=== PATIENT | male | born 1955 | race Caucasian/White ===

== ENCOUNTER → 2016-11-25 | Outpatient (CLI) | payer OTHER ==
[2016-11-25 11:53] LABS: BASO % 0.5 % (0.0-1.0); EOS # 0.3 10*3/uL (0.0-0.4); HEMATOCRIT 46.1 % (42.0-52.0); HEMOGLOBIN 15.5 g/dl (14.0-18.0); IG # 0.1 10*3/uL (0.0-0.1); LYMPH # 1.5 10*3/uL (1.3-4.4); LYMPH % 18.8 % (27.0-41.0); MEAN CELL VOLUME 86.8 fl (80.0-94.0); MEAN CORPUSCULAR HGB 29.2 pg (27.0-31.0); MEAN CORPUSCULAR HGB CONC 33.6 g/dl (33.0-37.0); MEAN PLATELET VOLUME 10.1 fl (9.6-12.3); MONO # 0.5 10*3/uL (0.1-1.0); MONO % 5.7 % (3.0-9.0); NEUT # 5.8 10*3/uL (2.3-7.9); NEUT % 70.3 % (47.0-73.0); PLATELET COUNT AUTOMATED 208 10*3/uL (130-400); RED BLOOD COUNT 5.31 10*6/uL (4.50-5.90); RED CELL DISTRI WIDTH 12.6 % (0-14.5); WHITE BLOOD COUNT 8.2 10*3/uL (4.8-10.8)
[2016-11-25 12:11] LABS: HEMOGLOBIN A1c 6.3 % (4.8-5.6)
[2016-11-25 12:25] LABS: ALBUMIN 4.3 gm/dl (3.1-4.5); ALKALINE PHOSPHATASE 66 U/L (45-117); BILIRUBIN, TOTAL 0.7 mg/dl (0.2-1.0); BUN 11 mg/dl (7-24); CARBON DIOXIDE 24 mmol/L (21-32); CHLORIDE 107 mmol/L (98-107); CHOLESTEROL 128 mg/dL (<200); EST GLOM FILT AFRICAN AMERICAN > 60 ml/min; FREE T4 1.24 ng/dl (0.76-1.46); GLUCOSE 107 mg/dL (65-99); HDL CHOLESTEROL 45 mg/dl (40-60); LDL CHOLESTEROL 58 mg/dL (9-159); POTASSIUM 3.8 mmol/L (3.5-5.1); SGOT/AST 43 IU/L (3-35); SGPT/ALT 67 U/L (12-78); SODIUM 137 mmol/L (136-145); T3 UPTAKE 34 % (31-39); TOTAL PROTEIN 8.2 gm/dL (6.4-8.2); TRIGLYCERIDES 127 mg/dl (<150); VLDL CHOLESTEROL 25 mg/dL (6-40)
[2016-11-25 12:30] LABS: BILIRUBIN, DIRECT 0.1 mg/dL (0.0-0.2); VITAMIN D, 25-HYDROXY 20.1 ng/mL (30-100)
== END | disposition home or self-care (01) ==
LOC: LAB 10:22
PROVIDERS: Internal Medicine
DX: E11.9 Type 2 diabetes mellitus without complications (principal); E55.9 Vitamin D deficiency, unspecified; R53.83 Other fatigue; Z79.899 Other long term (current) drug therapy; R52 Pain, unspecified

== ENCOUNTER → 2017-07-06 | Outpatient (CLI) | payer OTHER ==
--- NOTE | ~2017-07-06 | HM ---
[place], [place] HOLTER MONITOR REPORT NAME: PIERRE MOLINA UNIT #: [id number] ROOM: DOCTOR: JONATHAN CODY MD BIRTHDATE: [birth year] DOS: A 24-HOUR HOLTER MONITOR The study was recorded from July 06 to . The tape was analyzed and this is being dictated on June. REFERRED BY: AMBER Starkey for hypertension. PROCEDURE: The patient was monitored utilizing a Holter device for 24 hours. FINDINGS: Basic rhythm is normal sinus. Average heart rate is 75 with heart rate in sinus rhythm, varying from 52 to 128 beats per minute. The patient had occasional premature ventricular contractions. No ventricular tachycardia was seen. The patient had occasional premature atrial contractions with one atrial couplet but no SVT. No prolonged pauses were seen. The longest R-R interval was 1.3 seconds. No diary was returned. IMPRESSION: Essentially normal 24-hour Holter monitor. JONATHAN CODY MD CM:HOLTER:HOLTER MONITOR REPORT [id number] JONATHAN CODY MD
== END | disposition home or self-care (01) ==
LOC: US 06-16 11:00 → CARD 06-16 11:30 → US 06-22 10:00 → CARD 06-22 10:00 → US 10:00
DX: I65.23 Occlusion and stenosis of bilateral carotid arteries (principal)

== ENCOUNTER → 2017-08-25 | Day surgery (SDC) | payer OTHER ==
[~2017-08-25] VITALS: Ht 177.8 cm; Wt 140.6 kg
[~2017-08-25] MED LIST: 'CLONIDINE0.1 MG PO; ALLOPURINOL300 MG PO; CLONAZEPAM0.5 M2 PO; GLIPIZIDE5 MG PO; LAMOTRIGINE200 MG PO; LITHIUM CARBON300 MG PO; LOSARTAN POTASS50 M1 PO; MELOXICAM15 MG PO; OMEPRAZOLE40 MG PO; OXYBUTYNIN CHLOR5 MG PO; PRAVASTATIN SOD80 MG PO; PROAIR HFA8.5 GM INH; RISPERIDONE1 MG PO; SERTRALINE HYD100 MG PO; ZOLPIDEM TART10 MG PO
--- NOTE | ~2017-08-25 | PROC NOTE ---
[place], [place] PROCEDURE NOTE NAME: PIERRE MOLINA UNIT #: [id number] ROOM: DOCTOR: DELTA NEAL MD BIRTHDATE: [birth year] DOS: 08/25/2017 PREOPERATIVE DIAGNOSIS: History of gastroesophageal reflux disease. POSTOPERATIVE DIAGNOSES: History of gastroesophageal reflux disease. PROCEDURE: Esophagogastroduodenoscopy with antral biopsies times 2. ENDOSCOPIST: Delta Neal MD DIAGNOSTICS SALES DEVELOPER: None. ANESTHESIA: MAC. INDICATIONS: This is a 61-year-old gentleman with a history of previous diagnosis of GERD who is here for a repeat endoscopy. The procedure and its complications explained to the patient in detail preoperatively. Complications that were discussed included but were not limited to stomach perforation, missed lesions and prolonged pain. He agreed to proceed. DESCRIPTION OF PROCEDURE: After identifying the patient, the patient was brought to the endoscopy suite and placed in left lateral position. After time-out procedure was called, IV sedation was administered and a bite block was placed. An adult gastroscope was now introduced into the mouth and advanced sequentially into the pharynx, esophagus, duodenum, stomach and first 2 parts of the duodenum. There was found to be mild gastritis mainly in the antral region and also duodenitis. Two biopsies were taken from the region of the antrum and sent for histopathological diagnosis. The rest of the stomach was visualized by retroflexion of the scope and there was no evidence of bleeding or ulceration or any kind of inflammation that could be visualized in the rest of the stomach. The scope was withdrawn. The esophagus was within normal limits. There was found to be a small hiatal hernia. Upon withdrawal of the scope, the patient was then taken to the recovery room in a stable fashion. There were no complications. Dr. Delta Neal, the attending endoscopist, was present throughout the operating case. Delta Neal MD CM:PROCNOTE:PROCEDURE NOTE [id number] DELTA NEAL MD
[2017-08-25 07:30] VITALS: BP 124/71
[2017-08-25 08:12] VITALS: BP 114/73
[2017-08-25 08:27] VITALS: BP 120/70
[2017-08-25 08:42] VITALS: BP 124/70
== END | disposition home or self-care (01) ==
LOC: SDC 08-23 10:15
DX: K29.50 Unspecified chronic gastritis without bleeding (principal); K31.9 Disease of stomach and duodenum, unspecified; K29.80 Duodenitis without bleeding; K44.9 Diaphragmatic hernia without obstruction or gangrene; I10 Essential (primary) hypertension; E11.9 Type 2 diabetes mellitus without complications; J44.9 Chronic obstructive pulmonary disease, unspecified; F31.9 Bipolar disorder, unspecified; Z79.899 Other long term (current) drug therapy; Z79.82 Long term (current) use of aspirin; Z98.890 Other specified postprocedural states

== ENCOUNTER 2017-12-22 08:48 | Inpatient (IN) | payer OTHER, MEDICARE ==
[2017-12-22] VITALS (7 sets, daily range): BP systolic 113–138; BP diastolic 56–84
[~2017-12-22] VITALS: Ht 177.8 cm; Wt 129.9 kg
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
--- NOTE | ~2017-12-22 | EKG ---
[place], [place] ELECTROCARDIOGRAM REPORT NAME: PIERRE MOLINA UNIT #: [id number] ROOM: [facility] DOCTOR: PIPPA DRAFT REPORT BIRTHDATE: [birth year] [facility] Test Date: 2017-12-22 Test Time: 09:16:34 Pat Name: PIERRE MOLINA Department: Room: [facility] Gender: M Diesel Service Technician: : 1955 Requested By: JOSE TERAN Order Number: [id number] Reading MD: Mellisa Mari MD Measurements Intervals [place] Rate: 75 P: 9 MN: 164 QRS: -30 QRSD: 106 T: 33 QT: 391 QTc: 437 Interpretive Statements Sinus rhythm Left axis deviation Low voltage, precordial leads Abnormal R-wave progression, late transition Electronically Signed On 12-23-2017 4:27:23 PDT by Mellisa Mari MD CM:EKGRPT:ELECTROCARDIOGRAM REPORT 0427 JOSE FARIA DRAFT REPORT JOSE TERAN DO
[~2017-12-22 08:48] MED LIST changes: +ASPIRIN81 M1 PO; +VITAMIN D5000 UNIT PO
[2017-12-22 09:28] LABS: BASO % 0.5 % (0.0-1.0); EOS % 0.7 % (1.0-4.0); HEMATOCRIT 44.3 % (42.0-52.0); HEMOGLOBIN 15.2 g/dl (14.0-18.0); LYMPH # 0.4 10*3/uL (1.3-4.4); LYMPH % 9.5 % (27.0-41.0); MEAN CELL VOLUME 83.6 fl (80.0-94.0); MEAN CORPUSCULAR HGB 28.7 pg (27.0-31.0); MEAN CORPUSCULAR HGB CONC 34.3 g/dl (33.0-37.0); MEAN PLATELET VOLUME 10.7 fl (9.6-12.3); MONO # 0.3 10*3/uL (0.1-1.0); MONO % 6.1 % (3.0-9.0); NEUT # 3.7 10*3/uL (2.3-7.9); NEUT % 82.1 % (47.0-73.0); PLATELET COUNT AUTOMATED 123 10*3/uL (130-400); RED CELL DISTRI WIDTH 13.5 % (0-14.5); WHITE BLOOD COUNT 4.4 10*3/uL (4.8-10.8)
[2017-12-22 09:39] LABS: ACT PARTIAL THROMBO TIME 25.9 SECONDS (20.8-31.5); INTERNATIONAL NORM RATIO 1.1 (2.0-3.5)
[2017-12-22 09:47] LABS: ALBUMIN 3.7 gm/dl (3.1-4.5); ALKALINE PHOSPHATASE 79 U/L (45-117); BUN 16 mg/dl (7-24); CHLORIDE 98 mmol/L (98-107); CREATININE 1.15 mg/dL (0.70-1.30); LIPASE 132 U/L (73-393); POTASSIUM 4.3 mmol/L (3.5-5.1); SGOT/AST 69 IU/L (3-35); SGPT/ALT 75 U/L (12-78); SODIUM 131 mmol/L (136-145); TOTAL PROTEIN 7.8 gm/dL (6.4-8.2)
[2017-12-22 09:48] LABS: TROPONIN I < 0.015 ng/ml (<0.045)
[2017-12-22 10:02] LABS: BILIRUBIN 1+ (NEGATIVE); BLOOD NEGATIVE (NEGATIVE); CLARITY SL CLOUDY (CLEAR); COLOR YELLOW (YELLOW); GLUCOSE NEGATIVE (NEGATIVE); KETONE TRACE (NEGATIVE); LEUKO ESTERASE NEGATIVE (NEGATIVE); NITRITE NEGATIVE (NEGATIVE)
[2017-12-22 10:15] LABS: BACTERIA TRACE; WBC 0-2 wbc/hpf (0-5)
[2017-12-22 20:42] LABS: URINE AMPHETAMINES < 1000 (1000ng/ml); URINE BARBITURATES < 200 (200ng/ml); URINE BENZODIAZEPINES < 200 (200ng/ml); URINE CANNABINOIDS (THC) < 50 (50ng/ml); URINE COCAINE < 300 (300ng/ml); URINE METHADONE < 300 (300ng/ml); URINE OPIATES < 300 (300ng/ml); URINE PHENCYCLIDINE < 25 (25ng/ml)
[2017-12-23] VITALS: BP 125/56
[2017-12-23 04:00] VITALS: BP 118/54
[2017-12-23 06:00] LABS: BASO % 0.5 % (0.0-1.0); EOS # 0.1 10*3/uL (0.0-0.4); EOS % 1.4 % (1.0-4.0); HEMATOCRIT 43.1 % (42.0-52.0); HEMOGLOBIN 14.6 g/dl (14.0-18.0); LYMPH # 0.6 10*3/uL (1.3-4.4); LYMPH % 15.1 % (27.0-41.0); MEAN CELL VOLUME 83.5 fl (80.0-94.0); MEAN CORPUSCULAR HGB 28.3 pg (27.0-31.0); MEAN CORPUSCULAR HGB CONC 33.9 g/dl (33.0-37.0); MEAN PLATELET VOLUME 11.1 fl (9.6-12.3); MONO # 0.4 10*3/uL (0.1-1.0); MONO % 9.9 % (3.0-9.0); NEUT % 71.4 % (47.0-73.0); PLATELET COUNT AUTOMATED 124 10*3/uL (130-400); RED BLOOD COUNT 5.16 10*6/uL (4.50-5.90); RED CELL DISTRI WIDTH 13.3 % (0-14.5); WHITE BLOOD COUNT 4.2 10*3/uL (4.8-10.8)
[2017-12-23 06:06] LABS: ALBUMIN 3.4 gm/dl (3.1-4.5); ALKALINE PHOSPHATASE 75 U/L (45-117); BUN 15 mg/dl (7-24); CHLORIDE 102 mmol/L (98-107); CHOLESTEROL 91 mg/dL (<200); FREE T4 1.57 ng/dl (0.76-1.46); PHOSPHOROUS 3.7 mg/dL (2.5-4.9); POTASSIUM 4.3 mmol/L (3.5-5.1); SGOT/AST 69 IU/L (3-35); SGPT/ALT 77 U/L (12-78); SODIUM 133 mmol/L (136-145); TOTAL PROTEIN 7.4 gm/dL (6.4-8.2); TRIGLYCERIDES 164 mg/dl (<150); VLDL CHOLESTEROL 33 mg/dL (6-40)
[2017-12-23 06:10] LABS: HDL CHOLESTEROL 19 mg/dl (40-60); LDL CHOLESTEROL 39 mg/dL (9-159)
[2017-12-23 06:53] LABS: VITAMIN D, 25-HYDROXY 23.9 ng/mL (30-100)
[2017-12-23 08:00] VITALS: BP 110/64
[2017-12-23 12:00] VITALS: BP 108/66
== END 2017-12-23 15:45 | disposition home health service (06) | DRG 312 ==
LOC: ED 08:48 → EDHOLD 13:29 → ICCU 13:29 → 5E 13:29 → ICCU 16:34
PROVIDERS: Emergency Medicine; Internal Medicine
PROC: 5A09357 Assistance with Respiratory Ventilation, Less than 24 Consecutive Hours, Continuous Positive Airway Pressure (ICD-10-PCS; principal; 2017-12-22)
DX: I95.1 Orthostatic hypotension (principal); Z68.41 Body mass index [BMI] 40.0-44.9, adult; E87.1 Hypo-osmolality and hyponatremia; R26.81 Unsteadiness on feet; E11.65 Type 2 diabetes mellitus with hyperglycemia; E66.01 Morbid (severe) obesity due to excess calories; K21.9 Gastro-esophageal reflux disease without esophagitis; F25.0 Schizoaffective disorder, bipolar type; F41.9 Anxiety disorder, unspecified; I10 Essential (primary) hypertension; E78.5 Hyperlipidemia, unspecified; G47.33 Obstructive sleep apnea (adult) (pediatric); Z79.82 Long term (current) use of aspirin; Z79.84 Long term (current) use of oral hypoglycemic drugs; Z79.899 Other long term (current) drug therapy

== ENCOUNTER 2017-12-23 15:46 | Inpatient (IN) | payer OTHER ==
[~2017-12-23] VITALS: Ht 177.8 cm; Wt 136.1 kg
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
--- NOTE | ~2017-12-23 | PR ---
[place], [place] PROGRESS NOTE NAME: PIERRE MOLINA UNIT #: [id number] ROOM: 316 DOCTOR: KIM PEGEURO MD BIRTHDATE: [birth year] DOS: 12/26/2017 CHIEF COMPLAINT: "I always say those things about my kids, I do not really mean it, I just say it." SUMMARY OF THE VISIT: The patient was interviewed as he was finishing his breakfast. He engaged readily in conversation. He tends to be very vague in his responses. He continues to state that he constantly says that he is going to kill his children, no one else just them and that it is out of anger, but that he would never act upon these thoughts. He convincingly denies medication side effects. He did request that the nurses go over his medication list with him, so he is aware of exactly what he is taking. MENTAL STATUS: He is alert and oriented with some gaps in memory. He does seem to be trending towards euthymia. Affect is more appropriate. There are no gross psychotic symptoms. There are no william. Memory for the most part is intact with some small gaps. PLAN: I will maintain his current doses of Remeron and Invega. Engage in individual and carr milieu activity. I have discussed the case with social media content manager about our duty to inform even though I do not believe he is truly homicidal. We will proceed with duty to inform to be safe and protect the lives of other individuals. KIM PEGUERO MD CM:PNTRANS [phone] KIM PEGUERO MD 12/26/177 interface
--- NOTE | ~2017-12-23 | PR ---
[place], [place] PROGRESS NOTE NAME: PIERRE MOLINA UNIT #: [id number] ROOM: 316 DOCTOR: DORCAS NAQVI MD BIRTHDATE: [birth year] DOS: 12/25/2017 The patient has been admitted to the hospital with schizophrenic disorder. He is also having history of hypertension and diabetes. He was feeling dizzy and having unstable gait and his blood pressure today 115/64. He has been taking Cozaar 50 mg daily along with other blood pressure medicines, so I am trying to hold his Cozaar and they can start him again if his blood pressure goes more than 145/85. Discussed that with the nurses, if there is any problem let us know, maybe he may be having postural hypotension. Otherwise, he is medically stable. He is not having any chest pain, no difficulty breathing, no nausea, no vomiting. He is eating well. His temperature 97.8, pulse 75, respirations 16, temperature is 115/64. DORCAS NAQVI MD CM:PNTRANS [phone] DORCAS NAQVI MD 12/26/17 0148 interface
--- NOTE | ~2017-12-23 | PR ---
[place], [place] PROGRESS NOTE NAME: PIERRE MOLINA UNIT #: [id number] ROOM: 316 DOCTOR: TED, PHD SANTOS BIRTHDATE: [birth year] DOS: 12/26/2017 SUBJECTIVE: I met with the patient for individual psychotherapy. The patient reported feeling "confused" about why his statements of wanting to kill his children led him to be involuntarily hospitalized. Mood was irritable and affect was blunted. He was vague in his reporting of current homicidal ideation and stated he "did not want another corby against him." He denied suicidal ideation. His behavior was appropriate. Discussed the serious nature of his statements and feelings of resentment toward his children. Utilize CBT and supportive therapy intervention. The patient appeared to benefit. Plan to continue as needed. Shirin Carl, PhD CM:PNTRANS [phone] PHD TOM CARL 12/27/17 0400 interface
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
--- NOTE | ~2017-12-23 | PR ---
[place], [place] PROGRESS NOTE NAME: PIERRE MOLINA UNIT #: [id number] ROOM: 316 DOCTOR: KIM PEGUERO MD BIRTHDATE: [birth year] DOS: 12/25/2017 CHIEF COMPLAINT: "I slept better, I think I am feeling better." SUMMARY OF THE VISIT: The patient was interviewed as he was resting quietly in bed. He did report to me that he slept well, already got up, had breakfast and was lying back down just waiting for things to get going. He does report feeling better and notes no side effects other than some mild lightheadedness that dissipates quickly. I discussed at length with him the fact that on Tuesday, we would need to reach out to those people that he has made homicidal threats towards with our duty to inform and did state that this was our legal obligation to do so. He nodded in understanding this. MENTAL STATUS: He is alert and oriented. Mood does seem to be more euthymic. Affect more appropriate. There is no william, hypomania or psychosis. Short-term memory, long-term memory and intermediate are intact. PLAN: His vitamin B12 level is low normal at 317. I will give him a vitamin B12 injection of 1000 mcg IM monthly. We will contact social worker aide on Tuesday to reach out to those members of his family and others that he has made homicidal threats and do duty to inform. KIM PEGUERO MD CM:PNTRANS 0939 KIM PEGUERO MD 12/25/17 2217 interface
[2017-12-23 16:32] VITALS: BP 123/76
[2017-12-23 20:00] VITALS: BP 123/76
[2017-12-24 07:16] LABS: ALBUMIN 3.4 gm/dl (3.1-4.5); ALKALINE PHOSPHATASE 74 U/L (45-117); BUN 13 mg/dl (7-24); CHLORIDE 101 mmol/L (98-107); CHOLESTEROL 81 mg/dL (<200); CREATININE 1.06 mg/dL (0.70-1.30); HDL CHOLESTEROL 20 mg/dl (40-60); LDL CHOLESTEROL 30 mg/dL (9-159); SGOT/AST 60 IU/L (3-35); SGPT/ALT 75 U/L (12-78); SODIUM 134 mmol/L (136-145); TOTAL PROTEIN 7.1 gm/dL (6.4-8.2); TRIGLYCERIDES 154 mg/dl (<150); VLDL CHOLESTEROL 31 mg/dL (6-40)
[2017-12-24 07:56] VITALS: BP 136/65
[2017-12-24 19:46] VITALS: BP 112/65
[2017-12-25 07:49] VITALS: BP 115/64
[2017-12-25 20:02] VITALS: BP 117/55
[2017-12-26 07:42] VITALS: BP 118/64
[2017-12-26 19:27] VITALS: BP 138/60
[2017-12-27 07:33] VITALS: BP 132/82
[2017-12-27] MEDS ORDERED: ESKALITH,LITHI300 MG PO (08:56)
[2017-12-27] MEDS ORDERED: PALIPERIDONE ER6 MG PO (08:56)
[2017-12-27] MEDS ORDERED: B121000 MCG/1 IM (08:56)
[2017-12-27] MEDS ORDERED: Vitamin D PO (08:56)
[2017-12-27] MEDS ORDERED: MIRTAZAPINE15 M2 PO (08:56)
== END 2017-12-27 16:07 | disposition home or self-care (01) | DRG 885 ==
LOC: 3N 15:46
PROVIDERS: Psychiatry & Neurology Psychiatry
DX: F25.9 Schizoaffective disorder, unspecified (principal); Z68.41 Body mass index [BMI] 40.0-44.9, adult; F31.9 Bipolar disorder, unspecified; R45.850 Homicidal ideations; F41.0 Panic disorder [episodic paroxysmal anxiety]; I10 Essential (primary) hypertension; G47.33 Obstructive sleep apnea (adult) (pediatric); D72.810 Lymphocytopenia; D69.6 Thrombocytopenia, unspecified; E11.65 Type 2 diabetes mellitus with hyperglycemia; E83.41 Hypermagnesemia; E78.1 Pure hyperglyceridemia; E66.01 Morbid (severe) obesity due to excess calories; I95.1 Orthostatic hypotension; Z87.891 Personal history of nicotine dependence; Z79.82 Long term (current) use of aspirin; Z79.899 Other long term (current) drug therapy

== ENCOUNTER → 2018-12-29 | Outpatient (CLI) | payer OTHER ==
[~2018-12-29] MED LIST changes: +B121000 MCG/1 IM; +ESKALITH,LITHI300 MG PO; +MIRTAZAPINE15 M2 PO; +PALIPERIDONE ER6 MG PO; +Vitamin D PO
[2018-12-29 10:19] LABS: BASO # 0.1 10*3/uL (0.0-0.1); BASO % 0.5 % (0.0-1.0); EOS # 0.3 10*3/uL (0.0-0.4); EOS % 2.9 % (1.0-4.0); HEMATOCRIT 47.1 % (42.0-52.0); LYMPH # 1.2 10*3/uL (1.3-4.4); LYMPH % 11.4 % (27.0-41.0); MEAN CELL VOLUME 88.7 fl (80.0-94.0); MEAN CORPUSCULAR HGB 30.1 pg (27.0-31.0); MEAN PLATELET VOLUME 9.7 fl (9.6-12.3); MONO # 0.5 10*3/uL (0.1-1.0); MONO % 4.9 % (3.0-9.0); NEUT # 8.2 10*3/uL (2.3-7.9); NEUT % 79.3 % (47.0-73.0); PLATELET COUNT AUTOMATED 199 10*3/uL (130-400); RED BLOOD COUNT 5.31 10*6/uL (4.50-5.90); RED CELL DISTRI WIDTH 12.5 % (0-14.5); WHITE BLOOD COUNT 10.3 10*3/uL (4.8-10.8)
[2018-12-29 10:26] LABS: ALBUMIN 4.2 gm/dl (3.1-4.5); BUN 13 mg/dl (7-24); CHLORIDE 104 mmol/L (98-107); CHOLESTEROL 138 mg/dL (<200); CREATININE 1.04 mg/dL (0.70-1.30); POTASSIUM 4.1 mmol/L (3.5-5.1); SGOT/AST 19 IU/L (3-35); SGPT/ALT 37 U/L (12-78); SODIUM 136 mmol/L (136-145); TRIGLYCERIDES 169 mg/dl (<150); URIC ACID 5.3 mg/dL (3.5-7.2); VLDL CHOLESTEROL 34 mg/dL (6-40)
[2018-12-29 10:33] LABS: ALKALINE PHOSPHATASE 61 U/L (45-117); FREE T4 1.16 ng/dl (0.76-1.46); HDL CHOLESTEROL 45 mg/dl (40-60); LDL CHOLESTEROL 59 mg/dL (9-159)
[2018-12-29 12:12] LABS: VITAMIN D, 25-HYDROXY 28.7 ng/mL (30-100)
== END | disposition home or self-care (01) ==
LOC: LAB 09:30
PROVIDERS: Internal Medicine
DX: Z11.59 Encounter for screening for other viral diseases (principal); M1A.0790 Idiopathic chronic gout, unspecified ankle and foot, without tophus (tophi); I10 Essential (primary) hypertension; E11.9 Type 2 diabetes mellitus without complications; E55.9 Vitamin D deficiency, unspecified; F31.9 Bipolar disorder, unspecified

== ENCOUNTER → 2019-02-28 | Outpatient (CLI) | payer OTHER | END | disposition home or self-care (01) | LOC: RAD 12:24 | DX: M19.012 Primary osteoarthritis, left shoulder (principal) ==

== ENCOUNTER 2019-05-22 12:15 | Emergency (ER) | payer MEDICARE ==
[~2019-05-22] VITALS: Ht 177.8 cm; Wt 131.1 kg
[2019-05-22 13:05] LABS: BASO % 0.5 % (0.0-1.0); EOS # 0.2 10*3/uL (0.0-0.4); HEMATOCRIT 44.7 % (42.0-52.0); HEMOGLOBIN 14.9 g/dl (14.0-18.0); LYMPH # 1.3 10*3/uL (1.3-4.4); LYMPH % 16.4 % (27.0-41.0); MEAN CORPUSCULAR HGB 28.7 pg (27.0-31.0); MEAN CORPUSCULAR HGB CONC 33.3 g/dl (33.0-37.0); MEAN PLATELET VOLUME 9.7 fl (9.6-12.3); MONO # 0.4 10*3/uL (0.1-1.0); MONO % 4.8 % (3.0-9.0); NEUT # 6.2 10*3/uL (2.3-7.9); NEUT % 75.4 % (47.0-73.0); PLATELET COUNT AUTOMATED 184 10*3/uL (130-400); RED CELL DISTRI WIDTH 12.3 % (0-14.5); WHITE BLOOD COUNT 8.2 10*3/uL (4.8-10.8)
[2019-05-22 13:22] LABS: ALBUMIN 3.8 gm/dl (3.1-4.5); ALKALINE PHOSPHATASE 54 U/L (45-117); BUN 12 mg/dl (7-24); CHLORIDE 109 mmol/L (98-107); CREATININE 1.06 mg/dL (0.70-1.30); LIPASE 45 U/L (73-393); POTASSIUM 4.3 mmol/L (3.5-5.1); SGOT/AST 14 IU/L (3-35); SGPT/ALT 30 U/L (12-78); SODIUM 141 mmol/L (136-145); TOTAL PROTEIN 7.4 gm/dL (6.4-8.2)
[2019-05-22 16:02] LABS: BILIRUBIN NEGATIVE (NEGATIVE); BLOOD NEGATIVE (NEGATIVE); CLARITY SL CLOUDY (CLEAR); COLOR YELLOW (YELLOW); GLUCOSE NEGATIVE (NEGATIVE); KETONE TRACE (NEGATIVE); LEUKO ESTERASE NEGATIVE (NEGATIVE); NITRITE NEGATIVE (NEGATIVE); SPECIFIC GRAVITY 1.005 (1.005-1.030); UROBILINOGEN 0.2 E.U./dl (0.2-1.0)
[2019-05-22 16:12] LABS: BACTERIA TRACE; EPITHELIAL CELLS 0-2; RBC 0-2 rbc/hpf (0-2); WBC 0-2 wbc/hpf (0-5)
== END 2019-05-22 17:19 | disposition home or self-care (01) ==
LOC: ED 12:15
PROVIDERS: Emergency Medicine
DX: R39.11 Hesitancy of micturition (principal); I10 Essential (primary) hypertension; E11.65 Type 2 diabetes mellitus with hyperglycemia; K21.9 Gastro-esophageal reflux disease without esophagitis; F41.9 Anxiety disorder, unspecified; F32.9 Major depressive disorder, single episode, unspecified; E78.00 Pure hypercholesterolemia, unspecified; J44.9 Chronic obstructive pulmonary disease, unspecified; Z79.899 Other long term (current) drug therapy; Z79.2 Long term (current) use of antibiotics; Z87.891 Personal history of nicotine dependence

== ENCOUNTER → 2020-12-18 | Outpatient (CLI) | payer OTHER ==
[~2020-12-18] MED LIST changes: +OXYBUTYNIN CHLOR5 M1 PO; -OXYBUTYNIN CHLOR5 MG PO
== END | disposition home or self-care (01) ==
LOC: CARD 12:22
PROVIDERS: ATTEND Internal Medicine
DX: I45.10 Unspecified right bundle-branch block (principal); I10 Essential (primary) hypertension

== ENCOUNTER 2021-02-15 11:03 | Inpatient (IN) | payer OTHER ==
[~2021-02-15] VITALS: Ht 177.8 cm
[~2021-02-15 11:03] MED LIST changes: +VIBRAMYCIN100 MG PO
[2021-02-15 11:09] VITALS: BP 100/61; BP 106/69
[2021-02-15 11:51] LABS: BASO % 0.6 % (0.0-1.0); EOS # 0.2 10*3/uL (0.0-0.4); EOS % 2.3 % (1.0-4.0); HEMATOCRIT 40.5 % (42.0-52.0); LYMPH # 0.6 10*3/uL (1.3-4.4); LYMPH % 9.3 % (27.0-41.0); MEAN CELL VOLUME 87.9 fl (80.0-94.0); MEAN CORPUSCULAR HGB CONC 31.9 g/dl (33.0-37.0); MEAN PLATELET VOLUME 10.4 fl (9.6-12.3); MONO # 0.6 10*3/uL (0.1-1.0); MONO % 8.6 % (3.0-9.0); NEUT # 5.1 10*3/uL (2.3-7.9); NEUT % 78.6 % (47.0-73.0); PLATELET COUNT AUTOMATED 250 10*3/uL (130-400); RED BLOOD COUNT 4.61 10*6/uL (4.50-5.90); RED CELL DISTRI WIDTH 14.3 % (0-14.5); WHITE BLOOD COUNT 6.5 10*3/uL (4.8-10.8)
[2021-02-15 12:02] LABS: ACT PARTIAL THROMBO TIME 34.2 SECONDS (20.0-32.1); INTERNATIONAL NORM RATIO 1.5 (2.0-3.5)
[2021-02-15 12:08] LABS: ABG BASE EXCESS -2.4 mmol/L (-2.0-2.0); ARTERIAL BLOOD GAS PH 7.411 (7.35-7.45); ARTERIAL BLOOD GAS PO2 64.7 (80-90)
[2021-02-15 12:19] LABS: ALBUMIN 2.8 gm/dl (3.1-4.5); ALKALINE PHOSPHATASE 125 U/L (45-117); BUN 26 mg/dl (7-24); CHLORIDE 102 mmol/L (98-107); CREATININE 1.07 mg/dL (0.70-1.30); POTASSIUM 4.1 mmol/L (3.5-5.1); SGOT/AST 12 IU/L (3-35); SGPT/ALT 18 U/L (12-78); SODIUM 135 mmol/L (136-145); TOTAL PROTEIN 7.6 gm/dL (6.4-8.2)
[2021-02-15 12:21] LABS: TROPONIN I < 0.015 ng/ml (<0.045)
[2021-02-15 12:32] VITALS: BP 109/67
[2021-02-15 12:38] LABS: BILIRUBIN Negative (Negative); BLOOD Trace-Intact (Negative); CLARITY Clear (Clear); COLOR Dark Yellow (Yellow); GLUCOSE Negative (Negative); KETONE 2+ (Negative); LEUKO ESTERASE 1+ (Negative); NITRITE Negative (Negative); PH 5.5 (4.5-8.0); SPECIFIC GRAVITY 1.025 (1.001-1.030)
[2021-02-15 12:55] LABS: BACTERIA 1+; MUCOUS 1+; WBC 21-30 wbc/hpf (0-5)
[2021-02-15 13:38] VITALS: BP 121/74
[2021-02-15] MEDS ORDERED: SODIUM CHLORI1000 MG PO (14:31)
[2021-02-15] MEDS ORDERED: OXYBUTYNIN5 MG PO (14:31)
[2021-02-15 17:13] VITALS: BP 114/75
[2021-02-15 20:00] VITALS: BP 129/79
[2021-02-15 23:44] VITALS: BP 126/75
[2021-02-16 02:18] VITALS: BP 124/70
[2021-02-16 04:21] VITALS: BP 113/69
[2021-02-16 05:29] LABS: BUN 20 mg/dl (7-24); CHLORIDE 106 mmol/L (98-107); CREATININE 0.76 mg/dL (0.70-1.30); SODIUM 137 mmol/L (136-145)
[2021-02-16 06:18] LABS: BASO % 0.4 % (0.0-1.0); EOS # 0.2 10*3/uL (0.0-0.4); EOS % 2.6 % (1.0-4.0); HEMATOCRIT 38.8 % (42.0-52.0); LYMPH # 0.7 10*3/uL (1.3-4.4); LYMPH % 9.3 % (27.0-41.0); MEAN CELL VOLUME 86.8 fl (80.0-94.0); MEAN CORPUSCULAR HGB 27.7 pg (27.0-31.0); MONO # 0.8 10*3/uL (0.1-1.0); MONO % 9.8 % (3.0-9.0); NEUT % 77.3 % (47.0-73.0); PLATELET COUNT AUTOMATED 240 10*3/uL (130-400); RED BLOOD COUNT 4.47 10*6/uL (4.50-5.90); RED CELL DISTRI WIDTH 14.4 % (0-14.5); WHITE BLOOD COUNT 7.7 10*3/uL (4.8-10.8)
[2021-02-16 06:22] VITALS: BP 102/72
[2021-02-16 07:41] VITALS: BP 112/76
[2021-02-16 17:40] VITALS: BP 130/76
[2021-02-16 20:00] VITALS: BP 122/73
[2021-02-17] VITALS: BP 106/77
[2021-02-17 06:32] LABS: BUN 17 mg/dl (7-24); CHLORIDE 109 mmol/L (98-107); CREATININE 0.69 mg/dL (0.70-1.30); POTASSIUM 3.8 mmol/L (3.5-5.1); SODIUM 140 mmol/L (136-145)
[2021-02-17 07:45] VITALS: BP 118/70
[2021-02-17 08:08] LABS: PTH INTACT 52.8 pg/mL (18.5-88.0); VITAMIN D, 25-HYDROXY 46.7 ng/mL (30-100)
[2021-02-17 11:45] VITALS: BP 112/66
[2021-02-17 15:56] VITALS: BP 122/78
[2021-02-17 19:40] LABS: ABG BASE EXCESS -3.5 mmol/L (-2.0-2.0); ARTERIAL BLOOD GAS PH 7.402 (7.35-7.45); ARTERIAL BLOOD GAS PO2 89.5 (80-90)
[2021-02-17 20:00] VITALS: BP 139/90
[2021-02-18] VITALS: BP 133/78
[2021-02-18 07:43] LABS: BASO % 0.6 % (0.0-1.0); EOS # 0.2 10*3/uL (0.0-0.4); EOS % 3.3 % (1.0-4.0); HEMATOCRIT 40.1 % (42.0-52.0); LYMPH # 1.1 10*3/uL (1.3-4.4); LYMPH % 16.3 % (27.0-41.0); MEAN CORPUSCULAR HGB 27.5 pg (27.0-31.0); MEAN CORPUSCULAR HGB CONC 31.7 g/dl (33.0-37.0); MEAN PLATELET VOLUME 10.1 fl (9.6-12.3); MONO # 0.6 10*3/uL (0.1-1.0); MONO % 8.1 % (3.0-9.0); NEUT % 70.7 % (47.0-73.0); PLATELET COUNT AUTOMATED 246 10*3/uL (130-400); RED BLOOD COUNT 4.61 10*6/uL (4.50-5.90); RED CELL DISTRI WIDTH 14.5 % (0-14.5)
[2021-02-18 08:00] VITALS: BP 134/90
[2021-02-18 08:08] LABS: CHLORIDE 110 mmol/L (98-107); POTASSIUM 3.8 mmol/L (3.5-5.1); SODIUM 142 mmol/L (136-145)
[2021-02-18 08:16] LABS: BUN 14 mg/dl (7-24); CREATININE 0.72 mg/dL (0.70-1.30)
[2021-02-18 12:00] VITALS: BP 153/78
[2021-02-18 16:00] VITALS: BP 136/89
[2021-02-18 20:00] VITALS: BP 134/83
[2021-02-19] VITALS: BP 120/90
[2021-02-19 01:52] VITALS: BP 130/86
[2021-02-19 06:07] LABS: BUN 11 mg/dl (7-24); CHLORIDE 112 mmol/L (98-107); CREATININE 0.77 mg/dL (0.70-1.30); POTASSIUM 3.7 mmol/L (3.5-5.1); SODIUM 144 mmol/L (136-145)
[2021-02-19 06:12] LABS: BASO # 0.1 10*3/uL (0.0-0.1); BASO % 0.9 % (0.0-1.0); EOS # 0.2 10*3/uL (0.0-0.4); EOS % 3.2 % (1.0-4.0); HEMATOCRIT 36.4 % (42.0-52.0); LYMPH # 1.2 10*3/uL (1.3-4.4); LYMPH % 18.1 % (27.0-41.0); MEAN CELL VOLUME 88.3 fl (80.0-94.0); MEAN CORPUSCULAR HGB 27.9 pg (27.0-31.0); MEAN CORPUSCULAR HGB CONC 31.6 g/dl (33.0-37.0); MEAN PLATELET VOLUME 10.4 fl (9.6-12.3); MONO # 0.6 10*3/uL (0.1-1.0); MONO % 8.4 % (3.0-9.0); NEUT # 4.5 10*3/uL (2.3-7.9); NEUT % 68.3 % (47.0-73.0); PLATELET COUNT AUTOMATED 234 10*3/uL (130-400); RED BLOOD COUNT 4.12 10*6/uL (4.50-5.90); RED CELL DISTRI WIDTH 14.5 % (0-14.5); WHITE BLOOD COUNT 6.6 10*3/uL (4.8-10.8)
[2021-02-19 08:00] VITALS: BP 122/83
[2021-02-19 12:00] VITALS: BP 121/65
[2021-02-19 15:51] VITALS: BP 133/76
[2021-02-19 19:27] LABS: ABG BASE EXCESS -1.5 mmol/L (-2.0-2.0); ARTERIAL BLOOD GAS PH 7.448 (7.35-7.45); ARTERIAL BLOOD GAS PO2 108.3 (80-90)
[2021-02-19 20:00] VITALS: BP 128/70
[2021-02-20] VITALS: BP 121/69
[2021-02-20 08:00] VITALS: BP 150/70
[2021-02-20 12:00] VITALS: BP 148/68
[2021-02-20 16:00] VITALS: BP 144/82
[2021-02-20 20:00] VITALS: BP 127/81
[2021-02-21] VITALS: BP 131/73
[2021-02-21 06:35] LABS: BASO % 0.5 % (0.0-1.0); EOS # 0.3 10*3/uL (0.0-0.4); HEMATOCRIT 33.4 % (42.0-52.0); LYMPH % 16.8 % (27.0-41.0); MEAN CELL VOLUME 84.8 fl (80.0-94.0); MEAN CORPUSCULAR HGB 27.7 pg (27.0-31.0); MEAN CORPUSCULAR HGB CONC 32.6 g/dl (33.0-37.0); MEAN PLATELET VOLUME 9.8 fl (9.6-12.3); MONO # 0.5 10*3/uL (0.1-1.0); MONO % 7.7 % (3.0-9.0); NEUT # 4.3 10*3/uL (2.3-7.9); PLATELET COUNT AUTOMATED 194 10*3/uL (130-400); RED BLOOD COUNT 3.94 10*6/uL (4.50-5.90); RED CELL DISTRI WIDTH 14.2 % (0-14.5); WHITE BLOOD COUNT 6.2 10*3/uL (4.8-10.8)
[2021-02-21 06:46] LABS: BUN 5 mg/dl (7-24); CHLORIDE 112 mmol/L (98-107); POTASSIUM 3.4 mmol/L (3.5-5.1); SODIUM 143 mmol/L (136-145)
[2021-02-21 08:00] VITALS: BP 127/72
[2021-02-21 12:00] VITALS: BP 120/65
[2021-02-21 16:00] VITALS: BP 117/88
[2021-02-21 20:00] VITALS: BP 119/67
[2021-02-22] VITALS: BP 128/71
[2021-02-22 06:27] LABS: BASO % 0.5 % (0.0-1.0); EOS # 0.3 10*3/uL (0.0-0.4); EOS % 4.1 % (1.0-4.0); HEMATOCRIT 31.9 % (42.0-52.0); LYMPH % 15.2 % (27.0-41.0); MEAN CELL VOLUME 85.1 fl (80.0-94.0); MEAN CORPUSCULAR HGB 27.7 pg (27.0-31.0); MEAN CORPUSCULAR HGB CONC 32.6 g/dl (33.0-37.0); MEAN PLATELET VOLUME 10.2 fl (9.6-12.3); MONO # 0.5 10*3/uL (0.1-1.0); MONO % 7.5 % (3.0-9.0); NEUT # 4.8 10*3/uL (2.3-7.9); NEUT % 71.6 % (47.0-73.0); PLATELET COUNT AUTOMATED 204 10*3/uL (130-400); RED BLOOD COUNT 3.75 10*6/uL (4.50-5.90); RED CELL DISTRI WIDTH 14.3 % (0-14.5); WHITE BLOOD COUNT 6.7 10*3/uL (4.8-10.8)
[2021-02-22 06:44] LABS: BUN 7 mg/dl (7-24); CHLORIDE 111 mmol/L (98-107); CREATININE 0.47 mg/dL (0.70-1.30); POTASSIUM 3.5 mmol/L (3.5-5.1); SODIUM 142 mmol/L (136-145)
[2021-02-22 08:00] VITALS: BP 146/64
[2021-02-22 12:00] VITALS: BP 130/82
[2021-02-22 16:00] VITALS: BP 131/75
[2021-02-22 20:00] VITALS: BP 143/92
[2021-02-23] VITALS: BP 133/82
[2021-02-23 06:56] LABS: BASO % 0.7 % (0.0-1.0); EOS # 0.2 10*3/uL (0.0-0.4); EOS % 3.7 % (1.0-4.0); HEMATOCRIT 30.5 % (42.0-52.0); LYMPH # 0.8 10*3/uL (1.3-4.4); LYMPH % 13.6 % (27.0-41.0); MEAN CELL VOLUME 85.4 fl (80.0-94.0); MEAN CORPUSCULAR HGB CONC 32.8 g/dl (33.0-37.0); MEAN PLATELET VOLUME 10.3 fl (9.6-12.3); MONO # 0.4 10*3/uL (0.1-1.0); MONO % 7.5 % (3.0-9.0); NEUT # 4.2 10*3/uL (2.3-7.9); NEUT % 73.5 % (47.0-73.0); PLATELET COUNT AUTOMATED 189 10*3/uL (130-400); RED BLOOD COUNT 3.57 10*6/uL (4.50-5.90); RED CELL DISTRI WIDTH 14.3 % (0-14.5); WHITE BLOOD COUNT 5.7 10*3/uL (4.8-10.8)
[2021-02-23 07:13] LABS: BUN 7 mg/dl (7-24); CHLORIDE 112 mmol/L (98-107); CREATININE 0.49 mg/dL (0.70-1.30); SODIUM 143 mmol/L (136-145)
[2021-02-23 07:14] LABS: PREALBUMIN 9 mg/dl (20-40)
[2021-02-23 07:15] LABS: POTASSIUM 3.7 mmol/L (3.5-5.1)
[2021-02-23 08:00] VITALS: BP 151/74; BP 152/74
[2021-02-23 12:00] VITALS: BP 132/65
[2021-02-23 16:00] VITALS: BP 144/82
[2021-02-23 20:00] VITALS: BP 128/81
[2021-02-24] VITALS: BP 151/86
[2021-02-24 06:40] LABS: BASO % 0.3 % (0.0-1.0); EOS # 0.2 10*3/uL (0.0-0.4); EOS % 3.5 % (1.0-4.0); HEMATOCRIT 31.4 % (42.0-52.0); LYMPH # 0.8 10*3/uL (1.3-4.4); LYMPH % 12.8 % (27.0-41.0); MEAN CELL VOLUME 85.1 fl (80.0-94.0); MEAN CORPUSCULAR HGB 27.6 pg (27.0-31.0); MEAN CORPUSCULAR HGB CONC 32.5 g/dl (33.0-37.0); MEAN PLATELET VOLUME 10.5 fl (9.6-12.3); MONO # 0.6 10*3/uL (0.1-1.0); MONO % 9.4 % (3.0-9.0); NEUT # 4.3 10*3/uL (2.3-7.9); NEUT % 73.2 % (47.0-73.0); PLATELET COUNT AUTOMATED 204 10*3/uL (130-400); RED BLOOD COUNT 3.69 10*6/uL (4.50-5.90); RED CELL DISTRI WIDTH 14.3 % (0-14.5); WHITE BLOOD COUNT 5.9 10*3/uL (4.8-10.8)
[2021-02-24 06:57] LABS: ALBUMIN 2.2 gm/dl (3.1-4.5); ALKALINE PHOSPHATASE 65 U/L (45-117); BUN 9 mg/dl (7-24); CHLORIDE 108 mmol/L (98-107); CREATININE 0.47 mg/dL (0.70-1.30); POTASSIUM 3.2 mmol/L (3.5-5.1); SGOT/AST 11 IU/L (3-35); SGPT/ALT 12 U/L (12-78); SODIUM 141 mmol/L (136-145); TOTAL PROTEIN 6.3 gm/dL (6.4-8.2)
[2021-02-24 08:04] VITALS: BP 152/84
[2021-02-24 12:00] VITALS: BP 157/87
[2021-02-24 16:00] VITALS: BP 130/72
[2021-02-24 20:00] VITALS: BP 137/77
[2021-02-25] VITALS: BP 133/86
[2021-02-25 08:00] VITALS: BP 136/88
[2021-02-25 12:00] VITALS: BP 147/80
[2021-02-25] MEDS ORDERED: DORYX50 MG PO (15:49)
[2021-02-25 16:00] VITALS: BP 140/80
== END 2021-02-25 17:58 | DRG 177 ==
LOC: ED 11:03 → 5E 13:09 → EDHOLD 13:09 → 4E 13:09 → EDHOLD 16:22 → 4E 02-16 16:49 → 5E 02-20 18:13
PROVIDERS: Emergency Medicine; Internal Medicine; Internal Medicine Critical Care Medicine; Internal Medicine Nephrology; ADMIT Internal Medicine; ATTEND Internal Medicine
DX: J69.0 Pneumonitis due to inhalation of food and vomit (principal); G93.41 Metabolic encephalopathy; J96.90 Respiratory failure, unspecified, unspecified whether with hypoxia or hypercapnia; N39.0 Urinary tract infection, site not specified; F25.9 Schizoaffective disorder, unspecified; T56.891A Toxic effect of other metals, accidental (unintentional), initial encounter; E83.52 Hypercalcemia; G47.33 Obstructive sleep apnea (adult) (pediatric); E11.9 Type 2 diabetes mellitus without complications; R62.7 Adult failure to thrive; I10 Essential (primary) hypertension; F31.9 Bipolar disorder, unspecified; M1A.9XX0 Chronic gout, unspecified, without tophus (tophi); E78.2 Mixed hyperlipidemia; F41.1 Generalized anxiety disorder; E66.9 Obesity, unspecified; K76.0 Fatty (change of) liver, not elsewhere classified; K80.20 Calculus of gallbladder without cholecystitis without obstruction; U09.9 Post COVID-19 condition, unspecified; E87.6 Hypokalemia; Z87.891 Personal history of nicotine dependence; Y92.89 Other specified places as the place of occurrence of the external cause

== ENCOUNTER 2021-03-08 14:05 | Emergency (ER) | payer OTHER ==
[~2021-03-08] VITALS: Ht 177.8 cm; Wt 133.8 kg
[~2021-03-08 14:05] MED LIST changes: +DORYX50 MG PO; +OXYBUTYNIN5 MG PO; +SODIUM CHLORI1000 MG PO
[2021-03-08 14:42] LABS: BASO % 0.5 % (0.0-1.0); EOS # 0.3 10*3/uL (0.0-0.4); EOS % 4.5 % (1.0-4.0); HEMATOCRIT 36.8 % (42.0-52.0); LYMPH # 1.2 10*3/uL (1.3-4.4); LYMPH % 19.7 % (27.0-41.0); MEAN CELL VOLUME 84.8 fl (80.0-94.0); MEAN CORPUSCULAR HGB 27.9 pg (27.0-31.0); MEAN CORPUSCULAR HGB CONC 32.9 g/dl (33.0-37.0); MEAN PLATELET VOLUME 10.8 fl (9.6-12.3); MONO # 0.6 10*3/uL (0.1-1.0); NEUT # 4.1 10*3/uL (2.3-7.9); NEUT % 65.5 % (47.0-73.0); PLATELET COUNT AUTOMATED 243 10*3/uL (130-400); RED BLOOD COUNT 4.34 10*6/uL (4.50-5.90); RED CELL DISTRI WIDTH 15.3 % (0-14.5); WHITE BLOOD COUNT 6.2 10*3/uL (4.8-10.8)
[2021-03-08 14:57] LABS: ALBUMIN 2.9 gm/dl (3.1-4.5); ALKALINE PHOSPHATASE 63 U/L (45-117); BUN 11 mg/dl (7-24); CHLORIDE 107 mmol/L (98-107); CREATININE 0.55 mg/dL (0.70-1.30); LIPASE 80 U/L (73-393); POTASSIUM 3.5 mmol/L (3.5-5.1); SGOT/AST 13 IU/L (3-35); SGPT/ALT 17 U/L (12-78); SODIUM 141 mmol/L (136-145)
[2021-03-08 15:59] LABS: BILIRUBIN Negative (Negative); BLOOD Negative (Negative); CLARITY Cloudy (Clear); COLOR Dark Yellow (Yellow); GLUCOSE Negative (Negative); KETONE 3+ (Negative); LEUKO ESTERASE Trace (Negative); NITRITE Negative (Negative); SPECIFIC GRAVITY 1.025 (1.001-1.030)
[2021-03-08 16:10] LABS: BACTERIA 1+; MUCOUS 1+; TRIP PHOS CRYSTALS 1+
== END 2021-03-08 16:33 ==
LOC: ED 14:05
PROVIDERS: Emergency Medicine
DX: K80.20 Calculus of gallbladder without cholecystitis without obstruction (principal); K57.30 Diverticulosis of large intestine without perforation or abscess without bleeding; R33.9 Retention of urine, unspecified; E11.9 Type 2 diabetes mellitus without complications; E78.5 Hyperlipidemia, unspecified; I10 Essential (primary) hypertension; Z79.899 Other long term (current) drug therapy; Z87.891 Personal history of nicotine dependence